=== PATIENT | male | born 1960 | race African-American/Black ===

== ENCOUNTER 2019-08-27 23:30 | Inpatient (IN) ==
[2019-08-28 01:05] LABS: Basophils % 0.7 % (0.0-0.8); Eosinophils % 0.2 % (0.00-10.9); Hematocrit 33.2 VOL% (42.0-52.0); Hemoglobin 12.2 GM/DL (14.0-18.0); Immature Granulocytes % 0.5 %; Immature Granulocytes Absolute 0.02 #; Lymphocytes # 0.8 10*3/uL (1.4-4.0); Lymphocytes % 19.2 % (21.2-54.2); Mean Corpuscular HGB Conc 36.7 GM/DL (32-36); Mean Corpuscular Volume 100.6 FL (87-102); Mean Platelet Volume 8.7 FL (9.6-12.0); Monocytes % 10.9 % (1.7-12.7); Neutrophils % 68.5 % (38.7-73.9); Platelet Count 135 T/CUMM (130-400); Red Cell Distribution Width 12.6 % (9.3-17.3); White Blood Count 4.3 T/CUMM (4-12)
[2019-08-28 01:15] LABS: PT Patient Result 11.1 SECS (9.8-11.9)
[2019-08-28 01:21] LABS: Albumin 3.3 G/DL (3.4-5.0); Bilirubin,Total 0.6 MG/DL (0.2-1.0); Calcium 7.6 MG/DL (8.5-10.1); Osmolality,Calculated 244.6 MOS/KG (273-304); Total Protein 7.1 G/DL (6.4-8.3)
[2019-08-28] MEDS ORDERED: HYDROmorphone 2 MG/1 ML VIAL IV STA (01:25)
[2019-08-28] MEDS ORDERED: SODIUM CHLORIDE 0.9% 1,000 ML IV SCH (01:30)
[2019-08-28 02:46] LABS: Hypochromasia 2+; Platelet Estimate Normal
[2019-08-28] MEDS ORDERED: DEXTROSE 10% 250 ML BAG IV PRN (02:58)
[2019-08-28] MEDS ORDERED: GLUCAGON 1 MG VIAL IM PRN (02:58)
[2019-08-28] MEDS ORDERED: SODIUM CHLOR 0.9% KCL 20 MEQ 20 MEQ/1,000 ML BAG IV SCH (03:07)
[2019-08-28] MEDS ORDERED: SODIUM CHLOR 0.9% KCL 20 MEQ 20 MEQ/1,000 ML BAG IV ONE (05:43)
[2019-08-28] MEDS: HYDROmorphone 2 MG/1 ML VIAL IV PRN ×2 (06:01→17:44)
[2019-08-28] MEDS ORDERED: BUPIVACAINE SPINAL 0.75% 2 ML AMP SPINAL ONE (06:28)
[2019-08-28] MEDS ORDERED: DEXMEDETOMIDINE 200 MCG/2 ML VIAL ONE (06:28)
[2019-08-28] MEDS ORDERED: PHENYLEPHRINE 1 MG/10 ML SYRINGE IV ONE ×2 (06:29→10:22)
[2019-08-28] MEDS ORDERED: ceFAZolin 1,000 MG in SYRINGE 1 EACH IV ONE (08:03)
[2019-08-28] MEDS ORDERED: ceFAZolin 1,000 MG VIAL ONE (08:51)
[2019-08-28] MEDS ORDERED: BISACODYL 10 MG SUPP RECTAL PRN (09:43)
[2019-08-28] MEDS ORDERED: PROMETHAZINE 25 MG/1 ML VIAL IM PRN (09:43)
[2019-08-28] MEDS ORDERED: LACTULOSE 20 GM/30 ML UDCUP PO PRN (09:43)
[2019-08-28] MEDS ORDERED: ONDANSETRON 4 MG/2 ML VIAL IV PRN (09:43)
[2019-08-28] MEDS ORDERED: MORPHINE 4 MG/1 ML VIAL IV PRN ×2 (09:43→10:09)
[2019-08-28] MEDS ORDERED: diphenhydrAMINE CAP 25 MG CAPSULE PO PRN (09:43)
[2019-08-28] MEDS ORDERED: tiZANidine 4 MG TABLET PO PRN (09:47)
[2019-08-28] MEDS ORDERED: LACTATED RINGERS 1,000 ML IV ONE (10:22)
[2019-08-28] MEDS ORDERED: KETAMINE 500 MG/10 ML VIAL ONE (10:22)
[2019-08-28] MEDS ORDERED: MIDAZOLAM 2 MG/2 ML VIAL ONE (10:22)
[2019-08-28] MEDS: LACTATED RINGERS 1,000 ML IV SCH (11:40)
[2019-08-28] MEDS: POTASSIUM CHLORIDE RIDER 10 MEQ in PREMIX 1 EACH IV PRN ×4 (11:41→17:22)
[2019-08-28 12:16] LABS: Albumin 3.2 G/DL (3.4-5.0); Calcium 7.4 MG/DL (8.5-10.1); Osmolality,Calculated 246.5 MOS/KG (273-304); Total Protein 6.6 G/DL (6.4-8.3)
[2019-08-28] MEDS: ceFAZolin 1,000 MG in SYRINGE 1 EACH IV SCH ×2 (13:31→21:47)
[2019-08-29] MEDS: LACTATED RINGERS 1,000 ML IV SCH (02:42)
[2019-08-29 05:55] LABS: Basophils % 0.2 % (0.0-0.8); Hematocrit 23.3 VOL% (42.0-52.0); Hemoglobin 8.3 GM/DL (14.0-18.0); Immature Granulocytes % 0.5 %; Immature Granulocytes Absolute 0.03 #; Lymphocytes % 17.5 % (21.2-54.2); Mean Corpuscular HGB Conc 35.6 GM/DL (32-36); Mean Corpuscular Volume 103.1 FL (87-102); Mean Platelet Volume 9.6 FL (9.6-12.0); Monocytes % 9.4 % (1.7-12.7); Neutrophils % 72.4 % (38.7-73.9); Platelet Count 100 T/CUMM (130-400); Red Blood Count 2.26 MC/CUMM (3.8-5.5); Red Cell Distribution Width 12.6 % (9.3-17.3); White Blood Count 5.6 T/CUMM (4-12)
[2019-08-29 06:07] LABS: Calcium 8.1 MG/DL (8.5-10.1); Osmolality,Calculated 243.9 MOS/KG (273-304)
[2019-08-29] MEDS: FONDAPARINUX 2.5 MG/0.5 ML SYRINGE SUBCUT SCH (06:15)
[2019-08-29] MEDS: ceFAZolin 1,000 MG in SYRINGE 1 EACH IV SCH (06:18)
[2019-08-29 06:25] LABS: Hypochromasia 1+; Platelet Estimate Decreased
[2019-08-29] MEDS: HYDROmorphone 2 MG/1 ML VIAL IV PRN ×3 (08:08→20:01)
[2019-08-29] MEDS: BICTEGRAV EMTRICIT TENOFOV ALA PO SCH (11:35)
[2019-08-29] MEDS: SODIUM CHLORIDE 0.9% 1,000 ML IV SCH (15:00)
[2019-08-30] MEDS: SODIUM CHLORIDE 0.9% 1,000 ML IV SCH ×3 (00:34→20:04)
[2019-08-30] MEDS: FONDAPARINUX 2.5 MG/0.5 ML SYRINGE SUBCUT SCH (06:26)
[2019-08-30 07:34] LABS: Basophils % 0.2 % (0.0-0.8); Eosinophils % 0.2 % (0.00-10.9); Immature Granulocytes % 0.4 %; Immature Granulocytes Absolute 0.02 #; Lymphocytes # 0.9 10*3/uL (1.4-4.0); Lymphocytes % 18.3 % (21.2-54.2); Mean Corpuscular HGB Conc 35.1 GM/DL (32-36); Mean Corpuscular Volume 102.4 FL (87-102); Mean Platelet Volume 9.9 FL (9.6-12.0); Monocytes % 13.5 % (1.7-12.7); Neutrophils % 67.4 % (38.7-73.9); Platelet Count 83 T/CUMM (130-400); Red Cell Distribution Width 12.7 % (9.3-17.3)
[2019-08-30 07:43] LABS: Hematocrit 17.4 VOL% (42.0-52.0)
[2019-08-30 07:49] LABS: Hemoglobin 6.1 GM/DL (14.0-18.0)
[2019-08-30 07:56] LABS: Calcium 7.7 MG/DL (8.5-10.1); Osmolality,Calculated 251.2 MOS/KG (273-304)
[2019-08-30 08:16] LABS: Band Neutrophils 10 % (0-10); Lymphocytes 13 % (20-55); Segmented Neutrophils 68 % (50-85); Total Cells Counted 100
[2019-08-30 08:17] LABS: Anisocytosis 1+; Macrocytosis 1+; Platelet Estimate Decreased
[2019-08-30] MEDS ORDERED: SODIUM CHLORIDE 0.9% 1,000 ML IV PRN (08:37)
[2019-08-30 08:53] LABS: Hematocrit 18.7 VOL% (42.0-52.0); Hemoglobin 6.5 GM/DL (14.0-18.0)
[2019-08-30] MEDS: BICTEGRAV EMTRICIT TENOFOV ALA PO SCH (10:21)
[2019-08-30 18:18] LABS: Hematocrit 26.4 VOL% (42.0-52.0)
[2019-08-30 18:26] LABS: Hemoglobin 8.8 GM/DL (14.0-18.0)
[2019-08-31] MEDS: FONDAPARINUX 2.5 MG/0.5 ML SYRINGE SUBCUT SCH (05:31)
[2019-08-31 05:57] LABS: Basophils % 0.2 % (0.0-0.8); Eosinophils % 0.6 % (0.00-10.9); Hematocrit 25.2 VOL% (42.0-52.0); Hemoglobin 8.4 GM/DL (14.0-18.0); Immature Granulocytes % 1.3 %; Immature Granulocytes Absolute 0.07 #; Lymphocytes % 18.1 % (21.2-54.2); Mean Corpuscular HGB Conc 33.3 GM/DL (32-36); Mean Corpuscular Volume 96.9 FL (87-102); Mean Platelet Volume 9.9 FL (9.6-12.0); Monocytes % 12.6 % (1.7-12.7); Neutrophils % 67.2 % (38.7-73.9); Platelet Count 89 T/CUMM (130-400); Red Cell Distribution Width 18.4 % (9.3-17.3); White Blood Count 5.4 T/CUMM (4-12)
[2019-08-31 06:22] LABS: Calcium 8.3 MG/DL (8.5-10.1); Osmolality,Calculated 258.7 MOS/KG (273-304)
[2019-08-31 07:13] LABS: Lymphocytes 15 % (20-55); Segmented Neutrophils 72 % (50-85); Total Cells Counted 100
[2019-08-31 07:14] LABS: Anisocytosis 1+; Polychromasia Slight; Schistocytes Slight
[2019-08-31 07:15] LABS: Ovalocytes Few; Platelet Estimate Adequate
[2019-08-31] MEDS: BICTEGRAV EMTRICIT TENOFOV ALA PO SCH (08:32)
[2019-08-31] MEDS: MULTIVITAMIN (INTRINSIC) CAPSULE PO SCH (08:32)
[2019-09-01] MEDS: FONDAPARINUX 2.5 MG/0.5 ML SYRINGE SUBCUT SCH (06:39)
[2019-09-01 07:19] LABS: Calcium 8.6 MG/DL (8.5-10.1); Osmolality,Calculated 266.1 MOS/KG (273-304)
[2019-09-01 08:06] LABS: Basophils % 0.3 % (0.0-0.8); Eosinophils # 0.1 10*3/uL (0.0-0.87); Eosinophils % 0.8 % (0.00-10.9); Hematocrit 24.4 VOL% (42.0-52.0); Hemoglobin 8.4 GM/DL (14.0-18.0); Immature Granulocytes % 0.7 %; Immature Granulocytes Absolute 0.04 #; Lymphocytes % 16.7 % (21.2-54.2); Mean Corpuscular HGB Conc 34.4 GM/DL (32-36); Mean Corpuscular Volume 96.4 FL (87-102); Mean Platelet Volume 9.4 FL (9.6-12.0); Monocytes % 16.8 % (1.7-12.7); Neutrophils % 64.7 % (38.7-73.9); Platelet Count 102 T/CUMM (130-400); Red Blood Count 2.53 MC/CUMM (3.8-5.5); Red Cell Distribution Width 18.1 % (9.3-17.3); White Blood Count 6.1 T/CUMM (4-12)
[2019-09-01] MEDS: MULTIVITAMIN (INTRINSIC) CAPSULE PO SCH (08:39)
[2019-09-01] MEDS: BICTEGRAV EMTRICIT TENOFOV ALA PO SCH (08:40)
[2019-09-01] MEDS: MAGNESIUM HYDROXIDE SUSP 30 ML UDCUP PO PRN ×3 (08:40→22:08)
[2019-09-01 09:20] LABS: Anisocytosis 1+; Band Neutrophils 10 % (0-10); Eosinophils 1 % (0-10); Lymphocytes 16 % (20-55); Macrocytosis Slight; Platelet Estimate Adequate; Segmented Neutrophils 58 % (50-85); Total Cells Counted 100
[2019-09-02] MEDS: MAGNESIUM HYDROXIDE SUSP 30 ML UDCUP PO PRN (04:26)
[2019-09-02] MEDS: FONDAPARINUX 2.5 MG/0.5 ML SYRINGE SUBCUT SCH (06:06)
[2019-09-02 06:37] LABS: Calcium 8.3 MG/DL (8.5-10.1); Osmolality,Calculated 261.5 MOS/KG (273-304)
[2019-09-02] MEDS ORDERED: POTASSIUM CHLORIDE 20 MEQ TABLET PO ONE (07:03)
[2019-09-02] MEDS: MULTIVITAMIN (INTRINSIC) CAPSULE PO SCH (09:49)
[2019-09-02] MEDS: BICTEGRAV EMTRICIT TENOFOV ALA PO SCH (09:50)
[2019-09-02] MEDS: POTASSIUM CHLORIDE RIDER 10 MEQ in PREMIX 1 EACH IV PRN (22:54)
[2019-09-03 05:26] LABS: Basophils % 0.2 % (0.0-0.8); Eosinophils # 0.1 10*3/uL (0.0-0.87); Eosinophils % 1.7 % (0.00-10.9); Hematocrit 24.6 VOL% (42.0-52.0); Hemoglobin 8.4 GM/DL (14.0-18.0); Immature Granulocytes % 0.7 %; Immature Granulocytes Absolute 0.03 #; Lymphocytes # 1.1 10*3/uL (1.4-4.0); Lymphocytes % 22.9 % (21.2-54.2); Mean Corpuscular HGB Conc 34.1 GM/DL (32-36); Mean Corpuscular Volume 99.2 FL (87-102); Mean Platelet Volume 9.1 FL (9.6-12.0); Monocytes % 21.1 % (1.7-12.7); Neutrophils % 53.4 % (38.7-73.9); Platelet Count 122 T/CUMM (130-400); Red Blood Count 2.48 MC/CUMM (3.8-5.5); Red Cell Distribution Width 17.3 % (9.3-17.3); White Blood Count 4.6 T/CUMM (4-12)
[2019-09-03 05:41] LABS: Osmolality,Calculated 268.1 MOS/KG (273-304)
[2019-09-03 05:59] LABS: Band Neutrophils 1 % (0-10); Eosinophils 2 % (0-10); Lymphocytes 19 % (20-55); Segmented Neutrophils 62 % (50-85); Total Cells Counted 100
[2019-09-03 06:00] LABS: Hypochromasia 1+; Platelet Estimate Normal
[2019-09-03] MEDS: FONDAPARINUX 2.5 MG/0.5 ML SYRINGE SUBCUT SCH (06:26)
[2019-09-03] MEDS: SODIUM CHLORIDE 0.9% 1,000 ML IV SCH (07:57)
[2019-09-03] MEDS: MULTIVITAMIN (INTRINSIC) CAPSULE PO SCH (09:43)
[2019-09-03] MEDS: BICTEGRAV EMTRICIT TENOFOV ALA PO SCH (09:44)
[2019-09-03 12:00] VITALS: BP 133/80
== END 2019-09-03 12:47 | DRG 481 ==
LOC: EDUNIT# → N.ED 23:30 → SUATTDRO 08-28 02:58 → SUPCPDRO 08-28 02:58 → N.EDINP 08-28 02:58 → N.3E 08-28 08:22
PROVIDERS: ADMIT Emergency Medicine; ATTEND Internal Medicine